=== PATIENT | female | born 1955 | race Caucasian/White ===

== ENCOUNTER 2018-11-25 00:45 | Outpatient (CLI) | payer OTHER, SELFPAY ==
--- NOTE | 2018-11-25 11:04 | DI.MAMMO_ITS ---
EXAM: MG MAMMO SCREENING CLINICAL HISTORY: SCREENING Z12.39. TECHNIQUE: Bilateral full field digital CC and MLO mammographic images were obtained with 3D tomosyn thesis and utilizing computer aided detection (CAD). COMPARISON: Priors available for comparison. FINDINGS: Masses/Architectural Distortion: None seen. Microcalcifications: No suspicious pleomorphic-type are seen. Breast Density - Category A - Almost entirely fatty IMPRESSION: 1. No significant interval change with no specific features of malignancy noted. 2. Unless there is more urgent need, screening mammography is recommended, as per [employer] guidelines. ACR BI-RAD Category- 1 Negative A negative radiographic report should not delay biopsy if a dominant or clinically suspicious mass is present. Up to ten percent of cancers are not identified on mammography. A negative report may reinforce clinical impression. Adenosis and dense breasts may obscure an underlying neoplasm. False positive reports average 6 to 10%.
--- NOTE | 2018-11-25 11:19 | DI.RAD_ITS ---
EXAM: XR WRIST LT COMPLETE INDICATION: HAND PAIN M79.642. COMPARISON: There are no priors for comparison TECHNIQUE: 2D digital imaging was performed. FINDINGS: There is no acute fracture or dislocation in the left hand and wrist. At the 1st carpometacarpal bernardino nt there is joint space narrowing, subchondral sclerosis, and spurring present. Subchondral cysts ar e noted. The interphalangeal joints of the hand show varying degrees of joint space narrowing, subch ondral cyst formation, and osteophytes. The findings are most marked at the DIP joints of the index and middle fingers. There are no radiopaque foreign body seen in the soft tissues. 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
== END 2018-11-25 01:05 ==
PROVIDERS: PCP Nurse Practitioner Family; Visit Provider Nurse Practitioner Family
DX: M79.642 Pain in left hand (principal); M25.532 Pain in left wrist; M19.032 Primary osteoarthritis, left wrist; M19.042 Primary osteoarthritis, left hand; Z12.31 Encounter for screening mammogram for malignant neoplasm of breast
CPT/HCPCS: 77063; 77067; 73110; 73130

== ENCOUNTER 2019-02-24 01:41 | Outpatient (CLI) | payer OTHER, SELFPAY ==
[2019-02-24 09:14] LABS: HCT 38.5 % (36.0-46.0); HGB 12.1 g/dL (12.0-15.5); Mean Corp. HGB Concentration 31.4 g/dL (32.0-36.0); Mean Corpuscular Hemoglobin 27.6 pg (27.0-33.0); Mean Corpuscular Volume 87.9 fL (80-95); Mean Platelet Volume 10.3 fL (8.0-11.0); Platelet Count 362 x1000/uL (130-400); RBC 4.38 m/cumm (4.00-5.20); RBC Distribution Width 15.2 % (11.7-14.6); White Blood Cell Count 8.05 k/cumm (4.4-10.8)
[2019-02-24 10:13] LABS: ALT 21 U/L (14-59); AST 11 U/L (15-37); Albumin 3.4 g/dL (3.4-5.0); Alkaline Phosphatase 127 U/L (46-116); Anion Gap 5.2 mmol/L (3-11); BUN 18 mg/dL (7-18); Bilirubin, Total 0.2 mg/dL (0.2-1.0); CO2 32.8 mmol/L (21.0-32.0); CREATININE 0.73 mg/dL (0.55-1.02); Calcium 9.3 mg/dL (8.5-10.1); Calculated LDL 126 mg/dL; Chloride 104 mmol/L (98-107); Cholesterol 240 mg/dL (<200); Glucose 215 mg/dL (74-106); HDL Cholesterol 58 mg/dL (40-60); Potassium 5.1 mmol/L (3.5-5.1); Sodium 142 mmol/L (136-145); Total Protein 6.7 g/dL (6.4-8.2); Triglyceride 280 mg/dL (<150)
== END 2019-02-24 02:01 ==
PROVIDERS: PCP Nurse Practitioner Family; Visit Provider Nurse Practitioner Family
DX: I10 Essential (primary) hypertension (principal); E11.65 Type 2 diabetes mellitus with hyperglycemia; M79.642 Pain in left hand; F41.9 Anxiety disorder, unspecified
CPT/HCPCS: 36415; 80053; 80061; 85027; 81015; 82043; 82565; 82570; 84156

== ENCOUNTER 2020-03-12 02:25 | Outpatient (CLI) | payer MEDICARE, SELFPAY ==
[2020-03-12 12:11] LABS: Hemoglobin A1C 10.5 % (<5.7)
[2020-03-12 12:34] LABS: Anion Gap 9.3 mmol/L (3-11); BUN 18 mg/dL (7-18); CO2 27.7 mmol/L (21.0-32.0); CREATININE 0.73 mg/dL (0.55-1.02); Chloride 103 mmol/L (98-107); Glucose 199 mg/dL (74-106); Potassium 4.7 mmol/L (3.5-5.1); Sodium 140 mmol/L (136-145)
== END 2020-03-12 02:45 ==
PROVIDERS: PCP Nurse Practitioner Family; Visit Provider Nurse Practitioner Family
DX: E11.65 Type 2 diabetes mellitus with hyperglycemia (principal); I10 Essential (primary) hypertension
CPT/HCPCS: 36415; 80048; 83036

== ENCOUNTER 2020-04-13 00:33 | Outpatient (CLI) | payer MEDICARE, SELFPAY ==
--- NOTE | 2020-04-13 11:25 | DI.MAMMO_ITS ---
EXAM: MAMMO SCREENING CLINICAL HISTORY: SCREENING, Z12.39 TECHNIQUE: Mammograms were interpreted according to the usual protocol including computer analysis w [employer] CAD system, tomosynthesis and C-view imaging. COMPARISON: FINDINGS: The breasts are of moderate density with fairly symmetrical distribution of fibroglandular tissue. N o dominant mass or clumped microcalcification is identified in either breast. The current examinatio n is compared with prior examinations including October 2018 and there has been no gross interval c hange in appearance in comparison with the previous studies. IMPRESSION: No specific evidence of malignancy at this time. Routine screening examinations are suggested at ye eleuterio intervals in this age group according to the ACS ACR guidelines. BI-RADS Category 1 - Negative Breast Density - Category B - Scattered areas of fibroglandular density
== END 2020-04-13 00:34 ==
LOC: DI 00:34
PROVIDERS: PCP Nurse Practitioner Family; Visit Provider Nurse Practitioner Family
DX: Z12.31 Encounter for screening mammogram for malignant neoplasm of breast (principal)
CPT/HCPCS: 77063; 77067

== ENCOUNTER 2020-09-22 13:44 | Outpatient (REF) | payer MEDICARE, SELFPAY ==
[2020-09-22 22:03] LABS: COMMENT (LAB VIEW ONLY) 94.39 mg/dL; Microalb ug/mg Crea 3.1 ug/mg Cr
== END 2020-09-22 13:45 | disposition home or self-care (01) ==
LOC: NCHCN 13:44
PROVIDERS: PCP Nurse Practitioner Family; Visit Provider Nurse Practitioner Family
DX: E11.65 Type 2 diabetes mellitus with hyperglycemia (principal)
CPT/HCPCS: 82043; 82570

== ENCOUNTER 2021-05-13 18:48 | Outpatient (REF) | payer MEDICARE, SELFPAY ==
[2021-05-13 20:08] LABS: HCT 40.3 % (36.0-46.0); HGB 12.4 g/dL (11.2-15.7); MCH 27.2 pg (27.0-33.0); MCHC 30.8 % (32.0-36.0); MCV 88.4 fL (80-95); MPV 12.6 fL (8.0-11.0); Platelet Count 316 10^3/uL (130-400); RBC 4.56 10^6/uL (3.93-5.22); RDW 14.7 % (11.7-14.6); RDW-SD 47.2 fL; WBC 8.92 10^3/uL (4.4-10.8)
[2021-05-13 20:20] LABS: ALT 24 U/L (14-59); AST 13 U/L (15-37); Albumin 4.1 g/dL (3.4-5.0); Alkaline Phosphatase 108 U/L (46-116); Anion Gap 9.6 mmol/L (3-11); BUN 23 mg/dL (7-18); Bilirubin, Total 0.5 mg/dL (0.2-1.0); CO2 28.4 mmol/L (21.0-32.0); CREATININE 0.7 mg/dL (0.55-1.02); Calcium 9.4 mg/dL (8.5-10.1); Chloride 103 mmol/L (98-107); Glucose 188 mg/dL (74-106); Potassium 4.4 mmol/L (3.5-5.1); Sodium 141 mmol/L (136-145); TSH (W/Ref FT4) 0.91 uIU/mL (0.36-3.74)
[2021-05-13 20:30] LABS: Hemoglobin A1C 9.4 % (<5.7)
[2021-05-17 11:17] LABS: Fructosamine 302 mcmol/L (200 - 285)
== END 2021-05-13 18:49 | disposition home or self-care (01) ==
LOC: NCHCN 18:48
PROVIDERS: PCP Nurse Practitioner Family; Visit Provider Family Medicine
DX: E11.65 Type 2 diabetes mellitus with hyperglycemia (principal); I10 Essential (primary) hypertension; Z51.81 Encounter for therapeutic drug level monitoring; Z78.0 Asymptomatic menopausal state
CPT/HCPCS: 80053; 85027; 82985; 83036; 84443

== ENCOUNTER 2021-06-14 13:28 | Outpatient (REF) | payer MEDICARE, SELFPAY ==
[2021-06-14 18:25] LABS: BUN 20 mg/dL (7-18); Calcium 9.7 mg/dL (8.5-10.1); Chloride 99 mmol/L (98-107); Estimated GFR 55.47 (mL/min/1.73m2); Glucose 176 mg/dL (74-106); Potassium 4.3 mmol/L (3.5-5.1); Sodium 138 mmol/L (136-145)
== END 2021-06-14 13:29 | disposition home or self-care (01) ==
LOC: NCHCN 13:28
PROVIDERS: PCP Nurse Practitioner Family; Visit Provider Family Medicine
DX: I10 Essential (primary) hypertension (principal)
CPT/HCPCS: 80048

== ENCOUNTER → 2021-06-24 00:30 | Outpatient (CLI) | payer MEDICARE, SELFPAY ==
--- NOTE | 2021-06-24 | DI.DEXA_ITS ---
Exam(s) XR DEXA BONE DENSITY W/WO DUSTIN EXAM: XR DEXA BONE DENSITY W/WO DUSTIN CLINICAL HISTORY: MENOPAUSAL SCREENING, Z78.0 TECHNIQUE: icix Horizon C densitometer COMPARISON: No exams were available for comparison FINDINGS: Lateral view of the thoracic and lumbar spine shows no evidence of compression fractures. Bone mineral density measurements of the lumbar spine correspond to a total T-score of 1.6, in the normal range. Degenerative changes are visible which could elevate the bone mineral density measurem ents. Bone mineral density measurements of the left hip correspond to a total T-score of -1.4. The femora l neck T-score is -2.3, consistent with osteopenia.. The left forearm bone mineral density measurements correspond to a T-score of the distal 3rd of -2.9 , in the osteoporotic range.. IMPRESSION: Normal bone mineral density of the lumbar spine. Osteopenia of the left hip. Osteoporosis of the le ft forearm.
--- NOTE | 2021-06-24 | DI.MAMMO_ITS ---
Exam(s) MAMMO SCREENING EXAM: MAMMO SCREENING CLINICAL HISTORY: SCREENING FOR BREAST CA, Z12.39 TECHNIQUE: Mammograms were interpreted according to the usual protocol including computer analysis w [employer] CAD system, tomosynthesis and C-view imaging. COMPARISON: 2011 through 2020 FINDINGS: The breasts are composed of mainly fatty density , Breast Density category A. No suspicious masses or suspicious microcalcifications are seen. Vascular calcifications are present . No skin thickening or abnormal axillary lymph nodes are seen. There has been no significant change from prior exams. IMPRESSION: BI-RADS Category 1, Negative mammogram Yearly screening mammography is recommended. Breast Density - Category A, fatty density. A negative radiographic report should not delay biopsy if a dominant or clinically suspicious mass is present. Up to ten percent of cancers are not identified on mammography. A negative report may reinforce clinical impression. Adenosis and dense breasts may obscure an underlying neoplasm. False positive reports average 6 to 10%. Patient will receive a letter notifying them of these results.
== END ==
PROVIDERS: PCP Nurse Practitioner Family; Visit Provider Family Medicine
DX: Z12.31 Encounter for screening mammogram for malignant neoplasm of breast (principal); M81.0 Age-related osteoporosis without current pathological fracture; M85.88 Other specified disorders of bone density and structure, other site
CPT/HCPCS: 77063; 77067; 77080

== ENCOUNTER → 2021-09-01 11:19 | Outpatient (BNVA) | payer MEDICARE, SELFPAY | PROVIDERS: PCP Nurse Practitioner Family; Referring Provider Nurse Practitioner Family; Visit Provider Student in an Organized Health Care Education/Training Program | DX: M65.331 Trigger finger, right middle finger (principal) | CPT/HCPCS: 99212 ==

== ENCOUNTER 2021-10-07 11:18 | Outpatient (REF) | payer MEDICARE, SELFPAY ==
[2021-10-07 15:32] LABS: Anion Gap 10.3 mmol/L (3-11); BUN 23 mg/dL (7-18); CO2 27.7 mmol/L (21.0-32.0); CREATININE 0.7 mg/dL (0.55-1.02); Calcium 9.3 mg/dL (8.5-10.1); Chloride 103 mmol/L (98-107); Glucose 192 mg/dL (74-106); Potassium 4.5 mmol/L (3.5-5.1); Sodium 141 mmol/L (136-145)
[2021-10-10 05:46] LABS: Vitamin D 25 Total 37.1 ng/mL (30-100)
== END 2021-10-07 11:19 | disposition home or self-care (01) ==
LOC: NCHCN 11:18
PROVIDERS: PCP Nurse Practitioner Family; Visit Provider Family Medicine
DX: M85.80 Other specified disorders of bone density and structure, unspecified site (principal)
CPT/HCPCS: 80048; 82306

== ENCOUNTER 2021-12-05 17:19 | Outpatient (REF) | payer MEDICARE, SELFPAY ==
[2021-12-05 19:09] LABS: Bilirubin Negative (Negative); Blood Negative (Negative); Clarity Sl Cloudy (Clear); Glucose Negative (Negative); Ketones Negative (Negative); Leukocyte Esterase Small (Negative); Nitrite Negative (Negative); Urobilinogen 0.2 EU/dL (Up TO 0.2); pH 6.5 (5-8)
[2021-12-05 19:19] LABS: Bacteria Many HPF (Negative); Crystals Negative HPF (Negative); Epithelial Cells Negative HPF (Negative); Other Cells Few Transitional (Negative); RBC 0-2 HPF (0-2); WBC >50 HPF (0-5)
[2021-12-05 19:20] LABS: C & S Indicated? Yes; Mucus Negative (Negative)
== END 2021-12-05 17:20 | disposition home or self-care (01) ==
LOC: NCHCN 17:19
PROVIDERS: Visit Provider Family Medicine
DX: R30.0 Dysuria (principal)
CPT/HCPCS: 87077; 81003; 81015; 87086; 87186

== ENCOUNTER 2021-12-15 16:35 | Outpatient (REF) | payer MEDICARE, SELFPAY ==
[2021-12-15 20:54] LABS: Bacteria Few HPF (Negative); C & S Indicated? C&S Done As Ordered; Casts Negative LPF (Negative); Crystals Negative HPF (Negative); Epithelial Cells Few HPF (Negative); Mucus Negative (Negative); RBC 0-2 HPF (0-2); WBC 20-50 HPF (0-5)
== END 2021-12-15 16:36 | disposition home or self-care (01) ==
LOC: LBN 16:35
PROVIDERS: Visit Provider Physician Assistant Medical
DX: R30.0 Dysuria (principal); R35.0 Frequency of micturition
CPT/HCPCS: 81015; 87070; 87086; 87480; 87510; 87660

== ENCOUNTER 2022-01-09 15:11 | Outpatient (REF) | payer MEDICARE, SELFPAY ==
[2022-01-09 15:56] LABS: COMMENT (LAB VIEW ONLY) 231.02 mg/dL; Microalb ug/mg Crea 25.1 ug/mg Cr
== END 2022-01-09 15:12 | disposition home or self-care (01) ==
LOC: NCHCN 15:11
PROVIDERS: Visit Provider Family Medicine
DX: E11.9 Type 2 diabetes mellitus without complications (principal)
CPT/HCPCS: 82043; 82570

== ENCOUNTER 2022-03-13 12:48 | Outpatient (REF) | payer MEDICARE, SELFPAY | END 2022-03-13 12:49 | disposition home or self-care (01) | LOC: NCHCN 12:48 | PROVIDERS: Visit Provider Family Medicine | DX: N76.0 Acute vaginitis (principal) | CPT/HCPCS: 87480; 87510; 87660 ==

== ENCOUNTER 2022-05-09 11:50 | Outpatient (REF) | payer MEDICARE, SELFPAY | END 2022-05-09 11:51 | disposition home or self-care (01) | LOC: LBN 11:50 | PROVIDERS: Visit Provider Obstetrics & Gynecology | DX: N94.89 Other specified conditions associated with female genital organs and menstrual cycle (principal); N89.8 Other specified noninflammatory disorders of vagina | CPT/HCPCS: 87480; 87510; 87660 ==

== ENCOUNTER 2022-05-22 12:28 | Outpatient (REF) | payer MEDICARE, SELFPAY ==
--- NOTE | 2022-05-22 11:15 | PAPFT_PTH ---
PATIENT: Glenys Lawrence LOC: [facility]#:[id number] AGE/SX: 66/F ROOM: RE05/22/[address]: Marie Goldstein : 1955 BED: DIS: 05/22/2022 SPEC #: [id number] RECD: 05/22/22 17:54 STATUS: CASSI REYoan #: [id number] MARGARETTE: 05/22/22 11:[address]: Marie Goldstein DEPT: [facility] Cytology RECD BY: Citlaly Dumont Tissues: 1 - CX/ENDOCX FOR PAP SMEARS Procedures: PAP THIN PREP/UVM Screening HPV DNA PROBE Comments: [id number]
== END 2022-05-22 12:29 | disposition home or self-care (01) ==
LOC: NCHCN 12:28
PROVIDERS: PCP Family Medicine; Visit Provider Family Medicine
DX: Z11.51 Encounter for screening for human papillomavirus (HPV) (principal); Z01.419 Encounter for gynecological examination (general) (routine) without abnormal findings
CPT/HCPCS: 88142; 87624

== ENCOUNTER → 2022-07-11 11:00 | Outpatient (BNVA) | payer MEDICARE, SELFPAY | PROVIDERS: PCP Family Medicine; Visit Provider Nurse Practitioner Gerontology | DX: N32.81 Overactive bladder (principal) | CPT/HCPCS: 51798; 99213 ==

== ENCOUNTER 2022-07-14 00:25 | Outpatient (CLI) | payer MEDICARE, SELFPAY ==
--- NOTE | 2022-07-14 11:13 | DI.MAMMO_ITS ---
Exam(s) MAMMO SCREENING EXAM: MAMMO SCREENING CLINICAL HISTORY: SCREENING, Z12.39 TECHNIQUE: Bilateral full field digital CC and MLO mammographic images were obtained with 3D tomosyn thesis and utilizing computer aided detection (CAD). COMPARISON: Available for comparison. FINDINGS: Masses/Architectural Distortion: None seen. Microcalcifications: No suspicious pleomorphic-type are seen. Skin Thickening/Nipple Retraction: None. IMPRESSION: 1. No significant interval change with no specific features of malignancy noted. 2. Unless there is more urgent need, screening mammography is recommended, as per [employer] guidelines. BI-RADS Category 1 - Negative Breast Density - Category B - Scattered areas of fibroglandular density Breast density category C or D implies that the patient has dense breast tissue. Dense breast tissue is very common and is not abnormal but dense breast tissue can make it harder to find cancer on a ma mmogram. Also, dense breast tissue may increase their breast cancer risk. This information about the result of the mammogram report was provided to the patient to raise their awareness. Use this report when you speak with the patient about their risks for breast cancer, which includes their family hist ory. At that time, you may recommend for more screening tests (Ultrasound or MRI) as they might be us eful based on their risk. A negative radiographic report should not delay biopsy if a dominant or clinically suspicious mass is present. Up to ten percent of cancers are not identified on mammography. A negative report may reinforce clinical impression. Adenosis and dense breasts may obscure an underlying neoplasm. False positive reports average 6 to 10%. Patient will receive a letter notifying them of these results.
== END 2022-07-14 00:45 ==
LOC: DI 00:25
PROVIDERS: PCP Family Medicine; Visit Provider Family Medicine
DX: Z12.31 Encounter for screening mammogram for malignant neoplasm of breast (principal)
CPT/HCPCS: 77063; 77067

== ENCOUNTER 2022-08-14 16:43 | Outpatient (REF) | payer MEDICARE, SELFPAY ==
[2022-08-14 19:32] LABS: Bilirubin Negative (Negative); Blood Negative (Negative); Clarity Clear (Clear); Glucose Negative (Negative); Ketones Negative (Negative); Leukocyte Esterase Negative (Negative); Nitrite Negative (Negative); Urobilinogen 0.2 mg/dL (Up to 0.2)
== END 2022-08-14 16:44 | disposition home or self-care (01) ==
LOC: NCHCN 16:43
PROVIDERS: PCP Family Medicine; Visit Provider Family Medicine
DX: R30.0 Dysuria (principal)
CPT/HCPCS: 81003; 81015; 87086

== ENCOUNTER 2022-09-14 19:03 | Outpatient (REF) | payer MEDICARE, SELFPAY ==
[2022-09-14 16:52] LABS: ALT 23 U/L (14-59); AST 15 U/L (15-37); Albumin 3.8 g/dL (3.4-5.0); Alkaline Phosphatase 92 U/L (46-116); Anion Gap 10.1 mmol/L (3-11); BUN 26 mg/dL (7-18); Bilirubin, Total 0.3 mg/dL (0.2-1.0); CO2 28.9 mmol/L (21.0-32.0); CREATININE 0.7 mg/dL (0.55-1.02); Calcium 9.3 mg/dL (8.5-10.1); Calculated LDL 66 mg/dL (<100); Chloride 105 mmol/L (98-107); Cholesterol 144 mg/dL (<200); Estimated GFR 94.73 (mL/min/1.73m2); Glucose 86 mg/dL (74-106); HDL Cholesterol 69 mg/dL (40-60); Potassium 4.3 mmol/L (3.5-5.1); Sodium 144 mmol/L (136-145); Total Protein 6.4 g/dL (6.4-8.2); Triglyceride 49 mg/dL (<150)
[2022-09-14 17:17] LABS: Hemoglobin A1C 6.1 % (<5.7)
[2022-09-18 09:47] LABS: Hepatitis C Ab w Rflx HCV PCR Negative (Negative)
== END 2022-09-14 19:04 | disposition home or self-care (01) ==
LOC: NCHCN 19:03
PROVIDERS: PCP Family Medicine; Visit Provider Family Medicine
DX: E11.9 Type 2 diabetes mellitus without complications (principal); E78.5 Hyperlipidemia, unspecified; I10 Essential (primary) hypertension; Z11.59 Encounter for screening for other viral diseases
CPT/HCPCS: 80053; 80061; 86803; 83036

== ENCOUNTER 2023-06-20 13:26 | Outpatient (REF) | payer MEDICARE, SELFPAY ==
[2023-06-21 19:39] LABS: COMMENT (LAB VIEW ONLY) 286.34 mg/dL; Microalb ug/mg Crea 17.1 ug/mg Cr
== END 2023-06-20 13:27 | disposition home or self-care (01) ==
LOC: NCHCN 13:26
PROVIDERS: PCP Family Medicine; Visit Provider Family Medicine
DX: E11.9 Type 2 diabetes mellitus without complications (principal)
CPT/HCPCS: 82043; 82570

== ENCOUNTER → 2023-07-17 02:15 | Outpatient (CLI) | payer MEDICARE, SELFPAY ==
--- NOTE | 2023-07-17 | DI.MAMMO_ITS ---
Exam(s) MAMMO SCREENING EXAM: MAMMO SCREENING CLINICAL HISTORY: Z12.31 Screening TECHNIQUE: Mammograms were interpreted according to the usual protocol including computer analysis w [employer] CAD system, tomosynthesis and C-view imaging. COMPARISON: 2014 through 2022 FINDINGS: The breasts are composed of mainly fatty density , Breast Density category A. No suspicious masses or suspicious microcalcifications are seen. No skin thickening or abnormal axillary lymph nodes are seen. There has been no significant change from prior exams. IMPRESSION: BI-RADS Category 1, Negative mammogram Yearly screening mammography is recommended. Breast Density - Category A, fatty density. A negative radiographic report should not delay biopsy if a dominant or clinically suspicious mass is present. Up to ten percent of cancers are not identified on mammography. A negative report may reinforce clinical impression. Adenosis and dense breasts may obscure an underlying neoplasm. False positive reports average 6 to 10%. Patient will receive a letter notifying them of these results.
== END ==
PROVIDERS: PCP Family Medicine; Visit Provider Family Medicine
DX: Z12.31 Encounter for screening mammogram for malignant neoplasm of breast (principal)
CPT/HCPCS: 77063; 77067

== ENCOUNTER 2023-10-12 01:30 | Outpatient (CLI) | payer MEDICARE, SELFPAY ==
[2023-10-12 11:08] LABS: ALT 17 U/L (14-59); AST 14 U/L (15-37); Albumin 3.7 g/dL (3.4-5.0); Alkaline Phosphatase 81 U/L (46-116); Anion Gap 7.1 mmol/L (3-11); BUN 29 mg/dL (7-18); Bilirubin, Total 0.33 mg/dL (0.2-1.0); CO2 26.9 mmol/L (21.0-32.0); CREATININE 0.8 mg/dL (0.55-1.02); Calcium 9.7 mg/dL (8.5-10.1); Chloride 104 mmol/L (98-107); Estimated GFR 80.21 (mL/min/1.73m2); Glucose 141 mg/dL (74-106); Potassium 4.7 mmol/L (3.5-5.1); Sodium 138 mmol/L (136-145); Total Protein 6.9 g/dL (6.4-8.2)
[2023-10-12 11:44] LABS: Hemoglobin A1C 6.3 % (<5.7)
== END 2023-10-12 01:31 | disposition home or self-care (01) ==
LOC: LBO 01:30
PROVIDERS: PCP Family Medicine; Visit Provider Family Medicine
DX: E11.9 Type 2 diabetes mellitus without complications (principal); I10 Essential (primary) hypertension
CPT/HCPCS: 36415; 80053; 83036

== ENCOUNTER 2024-03-03 02:11 | Outpatient (CLI) | payer MEDICARE, SELFPAY ==
--- NOTE | 2024-03-03 07:30 | DI.RAD_ITS ---
Exam(s) XR FOOT RT COMPLETE EXAM: XR FOOT RT COMPLETE CLINICAL HISTORY: Right foot pain,M79.671. TECHNIQUE: 2D digital imaging was performed of the right foot. Three images were obtained. AP, obl ique and lateral views were obtained. COMPARISON: No exams were available for comparison FINDINGS: BONES: No acute fracture is present. No bony destructive lesion is seen. There is a small enthesophyt e at the posterior calcaneus. There is a small plantar calcaneal spur. JOINTS: No dislocation present. The joint spaces are well maintained except for the 5th tarsometatars al joint where there is marked joint space narrowing and subchondral sclerosis. SOFT TISSUE: Normal. 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 DATA REPOSITORY: RADIATION DOSE DELIVERED:
== END 2024-03-03 02:31 ==
LOC: DI 02:11
PROVIDERS: PCP Family Medicine; Visit Provider Podiatrist
DX: M79.671 Pain in right foot (principal)
CPT/HCPCS: 73630

== ENCOUNTER → 2024-07-01 13:13 | Outpatient (BNVA) | payer MEDICARE, SELFPAY | PROVIDERS: PCP Family Medicine; Referring Provider Family Medicine; Visit Provider Student in an Organized Health Care Education/Training Program | DX: M65.331 Trigger finger, right middle finger (principal) | CPT/HCPCS: 99214 ==

== ENCOUNTER 2024-08-07 10:56 | Day surgery (SDC) | payer MEDICARE, SELFPAY ==
[2024-08-07 11:03] VITALS: BP 113/73; PULSE 87; RESP 17; TEMP 36.3; O2SAT 98
--- NOTE | 2024-08-07 11:42 | W.PM.DSUDISC ---
Date of service: 08/07/24 Discharge Plan Disposition Patient Disposition: Home Discharge Details Attending Provider: Dinesh Fonseca Primary Care Provider: Marie Goldstein Home Meds and New Rx's Prescriptions: Continued metformin 500 MG tablet 1,000 mg PO BID atorvastatin 20 MG tablet 20 mg PO DAILY paroxetine HCl 30 mg tablet 40 mg PO HS candesartan 8 mg tablet 8 mg PO DAILY Glucos Chond Cplx Advanced 750 mg-100 mg- 125 mg-1.65 mg tablet 1 tab PO BID magnesium 250 mg tablet 250 mg PO DAILY Mounjaro 7.5 mg/0.5 mL pen injector 7.5 mg subcut QWEEK cholecalciferol (vitamin D3) 10 mcg (400 unit) capsule 10 mcg PO DAILY celecoxib [Celebrex] 100 MG capsule 100 mg PO BID lorazepam 1 MG tablet 1 mg PO TID PRN PRN epinephrine 0.3 MG/SYR auto-injector 0.3 mg IJ DIRECTED Hair,Skin and Nails 1 EACH tablet 1 ea PO DAILY Discharge Instructions Additional Instructions: Surgery: Right middle finger trigger release 08/07/2024; Preoperative chronic stiffness Activity: Protect hand for a few weeks. Gently increase finger motion and hand gripping to prevent stiffness. Recommend elevation to minimize swelling and discomfort. Hand therapy prescription will be provided in the office at follow-up if needed. Prescriptions: None Resume home medicines, use [id number] Tylenol (acetaminophen) as needed for mild pain and home celecoxib prescription for more moderate discomfort. Dressings: Leave dressing in place for 3 days. May then remove and leave open to air or cover incision with Band-Aid. May get wet after 5 days. Follow-up: 10-[address] Fonseca Please call the office during business hours with any questions or concerns. Stand Alone Forms: Amanda Foster (DSU) Referrals: Dinesh Fonseca MD [ [facility] STAFF PHYSICIAN, Orthopaedic Surgical] - 08/20/24 1:15 pm Discharge Orders Discharge Orders: Discharge Order (Routine); Ordered 08/07/24 Ordered By: Dinesh Fonseca DS: Diagnosis Discharge Diagnosis (1) Trigger middle finger of right hand: Status: Acute
--- NOTE | 2024-08-07 11:44 | ROE_ITS ---
Operative Note Operative Note PRE-OP DIAGNOSIS: Right middle trigger finger PROCEDURE: Right middle finger trigger release, CPT# 84070 SURGEON: Dinesh Fonseca SUPERVISOR [employer]: None None ANESTHESIA TYPE: Local By Surgeon Refer to Anesthesia Record ESTIMATED BLOOD LOSS: 1 TOURNIQUET TIME: 0 COMPLICATIONS: None Patient was transported to: same day Patient's condition: stable Indications: Please see complete medical record for details. Procedure Description: In the operating room, the patient was positioned supine on the stretcher. All bony prominences were padded. Preoperative antibiotics were omitted. The correct patient, procedure, and side of the procedure were all verified prior to beginning. Local anesthesia was induced about the site with 6cc of 1% lidocaine containing epinephrine buffered with 1 cc of sodium bicarbonate. The right hand was prepped and draped in the usual sterile fashion. Proper analgesia was confirmed. A small volar longitudinal approach was made overlying the middle finger MCP joint. Soft tissues were swept to the sides and retracted to expose the A1 leyla. The release was started centrally with a knife and completed at the proximal and distal margins with tenotomy scissors. Care was taken to protect the flexor tendons. The tendons were inspected and showed moderate degeneration, but otherwise intact with with appropriate tendon excursion confirmed. The patient readily demonstrated near?full flexion, full extension at the MCP joint, with mild limitation to full extension at the chronic contracture DIP joint. Motion of the finger was without any triggering. The small incision was irrigated and then dried. Hemostasis was appropriate. The incision was closed using 3-0 nylon in a horizontal mattress fashion. Xer oform was applied followed by gauze and the hand was gently compressed with an Antonio bandage. The patient tolerated local anesthesia without complication and was transferred out of the operating room in a stable condition. Date of Procedure: 08/07/24
[2024-08-07] MEDS: Lidocaine 1% Multi-Dose W/EPI 1/100,000 50 ML VIAL (12:05)
[2024-08-07] MEDS: Sodium Bicarbonate 50 MEQ/50 ML VIAL (12:05)
[2024-08-07 12:35] VITALS: BP 107/67; PULSE 82; RESP 16; TEMP 36; O2SAT 97
== END 2024-08-07 12:45 | disposition home or self-care (01) ==
LOC: SUR 10:57
PROVIDERS: PCP Family Medicine; Visit Provider Student in an Organized Health Care Education/Training Program
PROC: (CPT 26055; principal; 2024-08-07 12:00)
DX: M65.331 Trigger finger, right middle finger (principal)
CPT/HCPCS: 26055; J2004

== ENCOUNTER → 2024-08-20 14:14 | Outpatient (BNVA) | payer MEDICARE, SELFPAY | PROVIDERS: PCP Family Medicine; Referring Provider Family Medicine; Visit Provider Student in an Organized Health Care Education/Training Program | DX: Z47.89 Encounter for other orthopedic aftercare (principal); M65.331 Trigger finger, right middle finger | CPT/HCPCS: 99024 ==

== ENCOUNTER 2024-12-03 09:44 | Outpatient (REF) | payer MEDICARE, SELFPAY ==
[2024-12-03 15:59] LABS: Anion Gap 6.6 mmol/L (3-11); BUN 19 mg/dL (7-18); CO2 29.4 mmol/L (21.0-32.0); Calcium 9.1 mg/dL (8.5-10.1); Chloride 105 mmol/L (98-107); Estimated GFR 92.98 (mL/min/1.73m2); Glucose 115 mg/dL (74-106); Potassium 4.3 mmol/L (3.5-5.1); Sodium 141 mmol/L (136-145)
[2024-12-03 16:02] LABS: Hemoglobin A1C 5.6 % (<5.7)
== END 2024-12-03 09:45 | disposition home or self-care (01) ==
LOC: NCHCN 09:44
PROVIDERS: PCP Family Medicine; Visit Provider Family Medicine
DX: E11.9 Type 2 diabetes mellitus without complications (principal)
CPT/HCPCS: 80048; 83036

== ENCOUNTER → 2024-12-30 00:46 | Outpatient (CLI) | payer MEDICARE, SELFPAY ==
--- NOTE | 2024-12-30 | DI.DEXA_ITS ---
Exam(s) XR DEXA BONE DENSITY W/WO DUSTIN EXAM: XR DEXA BONE DENSITY W/WO DUSTIN CLINICAL HISTORY: SCREENING FOR OSTEOPOROSIS, ASYMPTOMATIC MENOPAUSAL STATE, Z78.0 TECHNIQUE: COMPARISON: CR XR DEXA BONE DENSITY W/WO DUSTIN from 06/24/2021 FINDINGS: Lateral Spine Image: Unremarkable. No compression deformities identified. Left hip: Total T-Score: -2.6. There has been decreased bone mineral density compared to the prior examination. The prior examination had a total T-score of -1.4. Total Z-Score: -1.1 T- and Z-scores: Findings are consistent with osteoporosis. Lumbar Spine: Total T-Score: 0.5. This compares to 1.6 on the prior examination. Total Z-Score: 2.6 T- and Z-scores: Within normal limits. IMPRESSION: Osteoporosis in the left hip. The bone mineral density has decreased since the prior examination from 2021.
--- NOTE | 2024-12-30 08:28 | DI.MAMMO_ITS ---
Exam(s) MG MAMMO SCREENING 60 MIN DUR EXAM: MG MAMMO SCREENING 60 MIN DUR CLINICAL HISTORY: SCREENING MAMMO, Z12.31 TECHNIQUE: Bilateral full field digital CC and MLO mammographic images were obtained with 3D tomosynthesis and utilizing computer aided detection (CAD). COMPARISON: Comparison is made with prior examinations. FINDINGS: Masses/Architectural Distortion: No suspicious masses or areas of architectural distortion are present. Microcalcifications: No suspicious pleomorphic-type are seen. Skin Thickening/Nipple Retraction: None. IMPRESSION: 1. No significant interval change with no specific features of malignancy noted. 2. Unless there is more urgent need, screening mammography is recommended, as per [employer] guidelines. BI-RADS Category 1 - Negative Breast Density - Category B - There are scattered areas of fibroglandular density. Breast density Category C or D implies that the patient has dense breast tissue. Dense breast tissue can make it harder to find cancer on a mammogram. Dense breast tissue is also associated with an increased risk of breast cancer. This information about the result of the mammogram report was provided to the patient to raise their awareness. Use this report when you speak with the patient about their risks for breast cancer, which includes their family history. At that time, you may recommend additional screening tests (Ultrasound or MRI) as these tests may add significant information. A negative radiographic report should not delay biopsy if a dominant or clinically suspicious mass is present. Up to ten percent of cancers are not identified on mammography. A negative report may reinforce clinical impression. Adenosis and dense breasts may obscure an underlying neoplasm. False positive reports average 6 to 10%. Patient will receive a letter notifying them of these results.
== END ==
LOC: DI 00:46
PROVIDERS: PCP Family Medicine; Visit Provider Family Medicine
DX: Z12.31 Encounter for screening mammogram for malignant neoplasm of breast (principal); Z78.0 Asymptomatic menopausal state; M81.0 Age-related osteoporosis without current pathological fracture
CPT/HCPCS: 77063; 77067; 77080

== ENCOUNTER 2025-01-21 02:11 | Outpatient (CLI) | payer MEDICARE, SELFPAY ==
[2025-01-21 08:47] LABS: HCT 35.9 % (36.0-46.0); HGB 11.5 g/dL (11.2-15.7); MCH 27.8 pg (27.0-33.0); MCHC 32.0 % (32.0-36.0); MCV 87 fL (80-95); MPV 10.1 fL (8.0-11.0); Platelet Count 341 10^3/uL (130-400); RBC 4.14 10^6/uL (3.93-5.22); RDW 14.8 % (11.7-14.6); RDW-SD 47.5 fL; WBC 9.36 10^3/uL (4.4-10.8)
[2025-01-21 08:56] LABS: Hemoglobin A1C 5.8 % (<5.7)
[2025-01-21 09:21] LABS: ALT 13 U/L (10-49); AST 16 U/L (<34); Albumin 4.2 g/dL (3.2-5.0); Alkaline Phosphatase 80 U/L (46-116); Anion Gap 9.6 mmol/L (3-11); BUN 21 mg/dL (9-23); Bilirubin, Total 0.30 mg/dL (0.2-1.2); CO2 29.4 mmol/L (20.0-31.0); Calcium 9.7 mg/dL (8.3-10.6); Chloride 104 mmol/L (98-107); Glucose 140 mg/dL (74-106); Potassium 3.8 mmol/L (3.5-5.1); Sodium 143 mmol/L (136-145); Total Protein 7.0 g/dL (5.7-8.2)
[2025-01-21 09:24] LABS: TSH (W/Ref FT4) 0.60 uIU/mL (0.55-4.78)
[2025-01-26 15:04] LABS: Albumin 62.6 % (55.8-66.1); Albumin g/dL 4.0 g/dL (3.6-5.2); Alpha 1 g/dL 0.30 g/dL (0.15-0.40); Alpha 2 g/dL 0.70 g/dL (0.50-1.00); Beta g/dL 0.70 g/dL (0.60-1.20); Gamma g/dL 0.80 g/dL (0.60-1.60); Total Protein 6.4 g/dL (6.3-8.2)
[2025-01-27 14:05] LABS: 1,25-Dihydroxyvitamin D 37 pg/mL (18-78)
== END 2025-01-21 02:12 | disposition home or self-care (01) ==
LOC: LBO 02:12
PROVIDERS: PCP Family Medicine; Visit Provider Family Medicine
DX: M81.0 Age-related osteoporosis without current pathological fracture (principal); E11.9 Type 2 diabetes mellitus without complications; I10 Essential (primary) hypertension
CPT/HCPCS: 36415; 80053; 85027; 82652; 83036; 83970; 84100; 84165; 84443

== ENCOUNTER 2025-02-08 12:30 | Outpatient (REF) | payer MEDICARE, SELFPAY ==
[2025-02-09 22:51] LABS: Timed Urine Volume 1050 mL; Urean Nitrogen Urine 24hr 10 g/24hrs (12-20)
[2025-02-11 15:35] LABS: Creatinine,Urine 71.1 mg/dL
[2025-02-11 16:18] LABS: Creatinine,24hr Ur 0.71 g/24hr (0.60-1.80); Total Volume 1050 mL
[2025-02-12 10:02] LABS: Calcium Urine 14.2 mg/dL (See Note); Timed Urine Volume 1050 mL
== END 2025-02-08 12:31 | disposition home or self-care (01) ==
LOC: NCHCN 12:30
PROVIDERS: PCP Family Medicine; Visit Provider Family Medicine
DX: M81.0 Age-related osteoporosis without current pathological fracture (principal); E11.9 Type 2 diabetes mellitus without complications; I10 Essential (primary) hypertension
CPT/HCPCS: 81050; 82340; 82570; 84540